=== PATIENT | female | born 1970 | race Caucasian/White ===

== ENCOUNTER 2018-05-15 20:08 | Emergency (ER) | payer MEDICAID ==
[2018-05-15] MEDS ORDERED: ONDANSETRON 4 MG TAB.RAPDIS PO ONE (22:59)
[2018-05-16 00:27] LABS: APPEARANCE,URINE CLOUDY; BILIRUBIN,URINE NEGATIVE (NEGATIVE); COLOR,URINE YELLOW; GLUCOSE, URINE NEGATIVE (NEGATIVE); KETONES,URINE 20 mg/dL (NEGATIVE); LEUKOCYTE ESTERASE,URINE NEGATIVE (NEGATIVE); NITRITE,URINE NEGATIVE (NEGATIVE); PROTEIN,URINE NEGATIVE (NEGATIVE); URINE SPECIFIC GRAVITY 1.023; UROBILINOGEN,URINE NEGATIVE mg/dL (<2.0)
[2018-05-16] MEDS ORDERED: HYDROCODONE/ACETAMINOPHEN 5-325 MG TABLET PO ONE (00:28)
--- NOTE | 2018-05-16 00:32 | ER Document Report ---
ED Medical Screen (RME) - General Chief Complaint: Abdominal Pain Stated Complaint: ABDOMINAL PAIN Time Seen by Provider: 05/16/18 00:27 Mode of Arrival: Ambulatory Information source: Patient Notes: 48-year-old female presented to ED for complaint of left lower abdominal/ovarian pain as well as epigastric pain. She states she has had no appetite with nausea and vomiting for the last 3 days. She states her urine is orange juice looking. She states she has a history of ovarian cyst bleeding ulcers and gastric bypass with exploratory lap where they found multiple areas of scar tissue that needed to be removed. She states she is in severe pain today and when she vomited today her some of her emesis was pink colored and she became very concerned that she was going have a bleeding ulcer again. She states she has not had any appetite and is having trouble keeping food down. Patient does have active bowel sounds in all 4 quadrants. Abdomen very tender especially on the left side. Patient speaking in full sentences walks with a even steady gait. I have greeted and performed a rapid initial assessment of this patient. A comprehensive ED assessment and evaluation of the patient, analysis of test results and completion of medical decision making process will be conducted by an additional ED providers. - Related Data Allergies/Adverse Reactions: clarithromycin [From Biaxin] Allergy (Verified 05/15/18 23:04) Penicillins Allergy (Verified 05/15/18 23:04) Physical Exam - Vital signs Vitals: Temp Pulse Resp BP Pulse Ox 98.3 F 59 L 14 111/69 100 05/15/18 20:47 05/15/18 20:47 05/15/18 20:47 05/15/18 20:47 05/15/18 20:47 Course - Vital Signs Vital signs: Temp Pulse Resp BP Pulse Ox 98.2 F 64 20 121/65 100 05/16/18 00:16 05/16/18 00:16 05/16/18 00:16 05/16/18 00:16 05/16/18 00:16 - Laboratory Laboratory results interpreted by me: 05/15/18 23:20 Urine Ketones 20 H
[2018-05-16 00:57] LABS: ABSOLUTE BASOPHILS # (AUTO) 0.1 10^3/uL (0.0-0.2); ABSOLUTE EOSINOPHILS # (AUTO) 0.3 10^3/uL (0.0-0.6); ABSOLUTE LYMPHOCYTES (AUTO) 1.4 10^3/uL (0.5-4.7); ABSOLUTE MONOCYTES (AUTO) 0.7 10^3/uL (0.1-1.4); ABSOLUTE NEUT (AUTO) 5.9 10^3/uL (1.7-8.2); EOSINOPHILS % (AUTO) 3.9 % (0-6); HEMATOCRIT 31.2 % (36.0-47.0); HEMOGLOBIN 9.4 g/dL (12.0-15.5); LYMPHOCYTES % (AUTO) 16.9 % (13-45); MEAN CORPUSCULAR HEMOGLOBIN 19.8 pg (27.0-33.4); MEAN CORPUSCULAR HGB CONC 30.1 g/dL (32.0-36.0); MEAN CORPUSCULAR VOLUME 66 fl (80-97); MONOCYTES % (AUTO) 8.1 % (3-13); PLATELET COUNT 646 10^3/uL (150-450); RED BLOOD COUNT 4.74 10^6/uL (3.72-5.28); RED CELL DISTRIBUTION WIDTH 18.5 % (11.5-14.0); SEGMENTED NEUTROPHILS % (AUTO) 70.1 % (42-78); TOTAL CELLS COUNTED % (AUTO) 100 %; WHITE BLOOD COUNT 8.4 10^3/uL (4.0-10.5)
--- NOTE | 2018-05-16 01:04 | ER Document Report ---
ED GI/ - General Chief Complaint: Abdominal Pain Stated Complaint: ABDOMINAL PAIN Time Seen by Provider: 05/16/18 01:04 Mode of Arrival: Ambulatory Information source: Patient Notes: HISTORY OF PRESENT ILLNESS: Patient is a 48-year-old female with a past medical history of gastric bypass wh o presents with abdominal pain. Patient believes symptoms began "years ago" after her initial gastric bypass and states that the left lower abdominal pain "never completely goes away." She denies vomiting but has had nausea, most recent. Was "a couple weeks ago" and was normal patient reports normal constipated bowel habits and denies melena or hematochezia. Location: Left lower quadrant Onset: Yesterday Provocation: Eating, movement Quality: Aching, sharp Radiation: None Severity: Moderate Timing: Constant REVIEW OF SYSTEMS: CONSTITUTIONAL : Denies fever or chills, no sweats. Denies recent illness. EENT: Denies eye, ear, throat, or mouth pain or symptoms. Denies nasal or sinus congestion. CARDIOVASCULAR: Denies chest pain. RESPIRATORY: Denies cough, cold, or chest congestion. Denies shortness of breath, difficulty breathing, or wheezing. GASTROINTESTINAL: Positive abdominal pain. Positive nausea but no vomiting or diarrhea. Positive chronic constipation. GENITOURINARY: Denies difficulty urinating, painful urination, burning, frequency, or blood in urine. FEMALE GENITOURINARY: Denies vaginal bleeding, abnormal or irregular periods. Last menstrual period MUSCULOSKELETAL: Denies neck or back pain or joint pain or swelling. SKIN: Denies rash or skin lesions. HEMATOLOGIC : Denies easy bruising or bleeding. LYMPHATIC: Denies swollen, enlarged glands. NEUROLOGICAL: Denies altered mental status or loss of consciousness. Denies headache. Denies weakness or paralysis or loss of use of either side. Denies problems with gait or speech. Denies sensory or motor loss. PSYCHIATRIC: Denies anxiety or stress or depression. All other systems reviewed and negative. PHYSICAL EXAMINATION: GENERAL: Well-appearing, well-nourished and in no acute distress. HEAD: Atraumatic, normocephalic. No scalp deformity, depression, or crepitance. EYES: Pupils are 3 mm and equal/round/reactive to light, extraocular movements intact, sclera anicteric, conjunctiva are normal. ENT: Nares patent bilaterally, oropharynx clear without exudates or palatal petechia. Moist mucous membranes. No tonsil hypertrophy. NECK: Normal range of motion, supple without lymphadenopathy. LUNGS: Breath sounds present, equal, and clear to auscultation bilaterally. No wheezes, rales, or rhonchi. HEART: Regular rate and rhythm without murmurs, rubs, or gallops. 2+ peripheral pulses. Normal capillary refill. ABDOMEN: Mild to moderate tenderness in the left lower quadrant without rebound or guarding. Normoactive bowel sounds. No masses appreciated. BACK: Normal contour, no midline tenderness. Rectal exam deferred. PELVC: Deferred. EXTREMITIES: Normal range of motion, no pitting or edema. No cyanosis. NEUROLOGICAL: No focal neurological deficits. Moves all extremities spont aneously and on command. PSYCH: Normal mood, normal affect. No suicidal thoughts/ideations. No srikanth ocidal thoughts/ideations. No hallucinations. SKIN: Warm, dry, normal turgor, no rashes or lesions noted. ASSESSMENT AND PLAN: This patient is a 48-year-old female who presents with acute on chronic abdominal pain in the setting of having several abdominal surgeries including one for lysis of adhesions following similar episode of abdominal pain 3 years ago. 1. Will obtain labs, CT scan, and reassess after medications. 2. If CT scan shows no acute pathology, patient will likely be discharged. - Related Data Allergies/Adverse Reactions: clarithromycin [From Biaxin] Allergy (Verified 05/15/18 23:04) morphine Allergy (Verified 05/16/18 02:31) Penicillins Allergy (Verified 05/15/18 23:04) Past Medical History - General Information source: Patient - Social History Smoking Status: Never Smoker Chew tobacco use (# tins/day): No Frequency of alcohol use: None Drug Abuse: None Lives with: Family Family History: Reviewed & Not Pertinent Patient has suicidal ideation: No Patient has homicidal ideation: No - Past Medical History Cardiac Medical History: Reports: None Pulmonary Medical History: Reports: None EENT Medical History: Reports: None Neurological Medical History: Reports: None Endocrine Medical History: Reports: None Renal/ Medical History: Reports: None Malignancy Medical History: Reports: None GI Medical History: Reports: Other - History of gastric bypass and chronic abdominal pain Musculoskeletal Medical History: Reports None Skin Medical History: Reports None Psychiatric Medical History: Reports: None Traumatic Medical History: Reports: None Infectious Medical History: Reports: None Past Surgical History: Reports: Hx Abdominal Surgery, Hx Section, Hx Gastric Bypass Surgery - Immunizations Immunizations up to date: Yes Hx Diphtheria, Pertussis, Tetanus Vaccination: Yes Physical Exam - Vital signs Vitals: Temp Pulse Resp BP Pulse Ox 98.3 F 59 L 14 111/69 100 05/15/18 20:47 05/15/18 20:47 05/15/18 20:47 05/15/18 20:47 05/15/18 20:47 Course - Re-evaluation Re-evalutation: 05/16/18 05:43 Labs and urine shows baseline anemia but otherwise unremarkable. CT scan is negative. Patient will be discharged home with return precautions and follow- up. Patient voices both understanding and agreeing with the plan. - Vital Signs Vital signs: Temp Pulse Resp BP Pulse Ox 98.2 F 64 20 121/65 100 05/16/18 00:16 05/16/18 00:16 05/16/18 00:16 05/16/18 00:16 05/16/18 00:16 - Laboratory Result Diagrams: 05/16/18 00:43 05/16/18 00:43 Laboratory results interpreted by me: 05/15/18 05/16/18 23:20 00:43 Hgb 9.4 L Hct 31.2 L MCV 66 L MCH 19.8 L MCHC 30.1 L RDW 18.5 H Plt Count 646 H Urine Ketones 20 H - Diagnostic Test Radiology reviewed: Image reviewed, Reports reviewed Discharge - Discharge Clinical Impression: Abdominal pain Qualifiers: Abdominal location: left lower quadrant Qualified Code(s): R10.32 - Left lower quadrant pain Condition: Good Disposition: HOME, SELF-CARE Instructions: Abdominal Pain ([facility]) Additional Instructions: You have been evaluated in the Emergency Department for abdominal pain. Please follow-up with your [primary physician] as instructed in 1-2 weeks. Return to the Emergency Department if you experience worsening pain, bloody stools, or any other concerning symptoms. Prescriptions: Tramadol HCl [Ultram 50 mg Tablet] 50 mg PO Q6HP PRN #30 tablet PRN Reason: Ondansetron [Zofran Odt 4 mg Tablet] 1 tab PO Q6H PRN #30 tab.rapdis PRN Reason: Print Language: Luxembourgish
[2018-05-16 01:08] LABS: ALANINE AMINOTRANSFERASE 25 U/L (9-52); ALBUMIN 4.5 g/dL (3.5-5.0); ALKALINE PHOSPHATASE 84 U/L (38-126); ANION GAP 7 (5-19); ASPARTATE AMINO TRANSFERASE 18 U/L (14-36); BILIRUBIN,DIRECT 0.1 mg/dL (0.0-0.4); BILIRUBIN,TOTAL 0.3 mg/dL (0.2-1.3); BLOOD UREA NITROGEN 10 mg/dL (7-20); CALCIUM 9.4 mg/dL (8.4-10.2); CARBON DIOXIDE 28 mmol/L (22-30); CHLORIDE 105 mmol/L (98-107); GLUCOSE 98 mg/dL (75-110); LIPASE 55.3 U/L (23-300); POTASSIUM 4.4 mmol/L (3.6-5.0); SODIUM 139.7 mmol/L (137-145); TOTAL PROTEIN 7.2 g/dL (6.3-8.2)
[2018-05-16] MEDS ORDERED: KETOROLAC TROMETHAMINE INJ/PF 30 MG/1 ML SDV IV ONE (02:46)
[2018-05-16] MEDS ORDERED: DIPHENHYDRAMINE HCL 50 MG/ML VIAL IV ONE (02:46)
[2018-05-16] MEDS ORDERED: METOCLOPRAMIDE HCL INJ/PF 10 MG/2 ML SDV IV ONE (02:46)
--- NOTE | 2018-05-16 04:05 | RADIOLOGY REPORT (SQ) ---
EXAM DESCRIPTION: CT ABDOMEN PELVIS WITH IV CONTRAST COMPLETED DATE/TME: 05/16/2018 00:00 CLINICAL HISTORY: 48 years Female, Abdominal pain Comparison: None. Technique: IV contrast. Coronal and sagittal reformat. This exam was performed according to our departmental dose-optimization program, which includes automated exposure control, adjustment of the mA and/or kV according to patient size and/or use of iterative reconstruction technique. [facility]: Dose Right [facility]: CareDose [facility]: Dose Right [facility]: Teradose 4D [facility]: [email or web address] LIMITATIONS: None Findings: Small patchy airspace opacity of the posterior left lower lobe may indicate small left lower lobar pneumonia or atelectasis. No ascites. Cholecystectomy. Gastric suture. Retained colonic fluid. Normal appendix. No bowel obstruction. No hydronephrosis or hydroureter. No renal/ureteral stone. Inferior thorax, liver, pancreas, spleen, adrenals, renal system, gastrointestinal tract, pelvic organs, lymphatics, vasculature, and musculoskeleton appear otherwise unremarkable. IMPRESSION: Small left lower lobar pneumonia/atelectasis. Else, no acute abdominal-pelvic findings.
[2018-05-16 05:55] VITALS: BP 92/58
== END 2018-05-16 06:02 | disposition home or self-care (01) ==
LOC: ER 20:08
DX: R10.32 Left lower quadrant pain (principal); R11.0 Nausea
CPT/HCPCS: 99284; 96374; 36415; 83690; 85025; 80053; 81001; 74177; J1200; S0119; J1885; J2765